=== PATIENT | female | born 1980 | race Caucasian/White ===

== ENCOUNTER 2017-11-26 02:42 | Emergency (ER) | payer OTHER ==
[2017-11-26] MEDS ORDERED: TYLENOL PO ONE (04:00)
[2017-11-26] MEDS ORDERED: TYLENOL ONE (04:03)
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
[2017-11-26] MEDS ORDERED: NORCO 5/325 PO ONE (08:55)
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
[2017-11-26 09:38] VITALS: BP 118/52
== END 2017-11-26 09:39 | disposition home or self-care (01) ==
LOC: ED 02:42
DX: S16.1XXA Strain of muscle, fascia and tendon at neck level, initial encounter (principal); S46.912A Strain of unspecified muscle, fascia and tendon at shoulder and upper arm level, left arm, initial encounter; S46.911A Strain of unspecified muscle, fascia and tendon at shoulder and upper arm level, right arm, initial encounter; G43.001 Migraine without aura, not intractable, with status migrainosus; V89.2XXA Person injured in unspecified motor-vehicle accident, traffic, initial encounter; Y93.89 Activity, other specified; Y92.488 Other paved roadways as the place of occurrence of the external cause; Y99.8 Other external cause status
CPT/HCPCS: 70450; 99283